=== PATIENT | male | born 1965 | race African-American/Black ===

== ENCOUNTER 2018-08-02 22:22 | Emergency (ER) | payer BC, SELFPAY ==
[2018-08-02] MEDS ORDERED: IBUPROFEN 200 MG TAB PO ONE (23:10)
[2018-08-02] MEDS ORDERED: IBUPROFEN 400 MG TAB ONE (23:10)
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
[2018-08-03 01:52] LABS: Urine Blood NEGATIVE (NEG); Urine Glucose NEGATIVE (NEG); Urine Protein NEGATIVE (NEG)
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
== END 2018-08-03 02:09 | disposition home or self-care (01) ==
LOC: ER 22:22
DX: S16.1XXA Strain of muscle, fascia and tendon at neck level, initial encounter (principal); M17.11 Unilateral primary osteoarthritis, right knee; M54.5 Low back pain; M25.511 Pain in right shoulder; M25.561 Pain in right knee; V49.40XA Driver injured in collision with unspecified motor vehicles in traffic accident, initial encounter; I10 Essential (primary) hypertension; K21.9 Gastro-esophageal reflux disease without esophagitis
CPT/HCPCS: 72125; 72131; 72170; 81003; 99284